=== PATIENT | male | born 1940 | race Caucasian/White ===

== ENCOUNTER 2024-08-01 17:30 | Inpatient (IN) | payer OTHER ==
[2024-08-01 18:07] VITALS: BMI 32.2
[2024-08-01 19:42] LABS: VENOUS BASE EXCESS 0.4 mmol/L (-2-2); VENOUS O2 SATURATION 50.6 % (70-80); VENOUS PCO2 45.7 mmHg (38-52); VENOUS PH 7.373 (7.310-7.410)
[2024-08-01 19:43] LABS: ABSOLUTE IMMATURE GRANULOCYTES 0.22 x10^3/uL (0.0-0.031); BASOPHILS # 0.09 x10^3/uL (0.01-0.08); EOSINOPHIL % 11.2 % (0.8-7.0); EOSINOPHILS # 1.73 x10^3/uL (0.04-0.54); HEMATOCRIT 36.6 % (40.1-51.0); HEMOGLOBIN 11.9 g/dL (13.7-17.5); MCHC 32.5 g/dl (32.3-36.5); MEAN CELL VOLUME 105.8 fl (79.0-92.2); MEAN PLT VOLUME 9.6 fl (9.4-12.4); MONOCYTE # 1.23 x10^3/uL (0.30-0.82); MONOCYTE % 7.9 % (5.3-12.2); PLATELET COUNT 263 x10^3/uL (163-337); RDW 14.5 % (12.6-16.6)
[2024-08-01 19:54] LABS: INR 1.05 (0.83-1.09); PROTHROMBIN TIME (PATIENT) 11.4 SEC (9.7-13.0)
[2024-08-01 19:57] LABS: ACTIVATED PTT 24.9 SECONDS (25.2-36.5)
[2024-08-01 20:02] LABS: CHLORIDE 107 mmol/L (98-107); POTASSIUM 4.4 mmol/L (3.5-5.1); SODIUM 141 mmol/L (136-145)
[2024-08-01 20:04] LABS: CALCIUM 8.7 mg/dL (8.5-10.1)
[2024-08-01 20:05] LABS: ALBUMIN 2.8 g/dl (3.4-5.0); ANION GAP 6 mmol/L (4-13); BLOOD UREA NITROGEN 16.6 mg/dL (7-18); CO2 27 mmol/L (21-32); GLUCOSE,RANDOM 106 mg/dL (74-106); MAGNESIUM 1.7 mg/dL (1.8-2.4)
[2024-08-01 20:08] LABS: CREATININE 1.3 mg/dL (0.55-1.3); PHOSPHOROUS 3.1 mg/dL (2.5-4.9); SGOT/AST 15 U/L (15-37); SGPT/ALT < 6 U/L (13-61)
[2024-08-01 20:10] LABS: BILIRUBIN,TOTAL 0.3 mg/dL (0.2-1); TOT PROT 5.6 g/dl (6.4-8.2)
[2024-08-01 20:11] LABS: ALK PHOS 82 U/L (45-117)
[2024-08-01 20:24] LABS: LACTIC ACID 2.2 mmol/L (0.4-2.0)
[2024-08-01] MEDS ORDERED: MAGNESIUM SULFATE IN WATER 2 GM/50 ML IVPB IVPB ONE (21:38)
[2024-08-01] MEDS: SODIUM CHLORIDE 1,000 ML IV STA (21:44)
[2024-08-01] MEDS: MAGNESIUM SULF 50% (8.12 MEQ/2 ML-1 GM VIAL) IVPB ONE (21:45)
[2024-08-02] MEDS ORDERED: ACETAMINOPHEN 325 MG TABLET (FP) PO PRN (00:05)
[2024-08-02] MEDS: CIPROFLOXACIN 400 MG/D5W 400 MG/200 ML IVPB IVPB ONE (00:15)
[2024-08-02 02:23] LABS: POTASSIUM 4.5 mmol/L (3.5-5.1)
[2024-08-02 02:24] LABS: CALCIUM 8.5 mg/dL (8.5-10.1)
[2024-08-02 02:25] LABS: MAGNESIUM 2.5 mg/dL (1.8-2.4)
[2024-08-02 02:28] LABS: CREATININE 1.2 mg/dL (0.55-1.3)
[2024-08-02 04:03] LABS: LACTIC ACID 2.1 mmol/L (0.4-2.0)
[2024-08-02 05:26] VITALS: RESP 18
[2024-08-02] MEDS ORDERED: SIMETHICONE 80 MG TAB.CHEW (FP) PO PRN (08:15)
[2024-08-02 09:21] LABS: BASOPHILS # 0.09 x10^3/uL (0.01-0.08); EOSINOPHIL % 11.7 % (0.8-7.0); EOSINOPHILS # 1.52 x10^3/uL (0.04-0.54); HEMATOCRIT 36.7 % (40.1-51.0); HEMOGLOBIN 11.9 g/dL (13.7-17.5); MCHC 32.4 g/dl (32.3-36.5); MEAN CELL VOLUME 106.1 fl (79.0-92.2); MEAN PLT VOLUME 9.9 fl (9.4-12.4); MONOCYTE # 1.17 x10^3/uL (0.30-0.82); PLATELET COUNT 255 x10^3/uL (163-337); RDW 14.5 % (12.6-16.6)
[2024-08-02] MEDS: CHOLECALCIFEROL (VIT D3) 1,000 UNIT (25 MCG) TABLET PO SCH (10:07)
[2024-08-02] MEDS: CEFTRIAXONE 1 G/50 ML PREMIX 50 ML IVPB SCH (10:07)
[2024-08-02] MEDS: metoPROLOL SUCCINATE 25 MG TAB.SR.24H (FP) PO SCH (10:07)
[2024-08-02] MEDS: SODIUM CHLORIDE 1,000 ML IV SCH (10:07)
[2024-08-02] MEDS: ASPIRIN COATED 81 MG TABLET.EC PO SCH (10:07)
[2024-08-02] MEDS: CARBIDOPA/LEVODOPA 25/250 TABLET (FP) PO SCH (10:07)
[2024-08-02] MEDS: ARTIFICIAL TEARS OPHTHALMIC DROPS OU PRN (12:00)
[2024-08-02] MEDS: AMMONIUM LACTATE 12% LOTION 225 GM BOTTLE TP SCH (12:00)
[2024-08-02] MEDS: NYSTATIN POWDER 100,000 UNITS/GM - 15 GM TOPICAL POWDER TP SCH (12:01)
[2024-08-02] MEDS: NYSTATIN 100,000 UNIT/GM TOPICAL CREAM 15 GM TUBE TP SCH (12:01)
[2024-08-02] MEDS: HEPARIN NA (PORCINE) 5,000 UNITS/ML 1ML VIAL SQ SCH (13:41)
[2024-08-02] MEDS: ALBUTEROL SO4 2.5/IPRATROPIUM 0.5 INH SOL 3 ML VIAL.NEB. NEB SCH (14:55)
[2024-08-02 18:08] LABS: EPI CELLS 5 /uL (0-25.1); HYALINE CASTS 0 /uL (0-3.1); PH,URINE 6.5 (5.0-8.0); URINE APPEARANCE CLEAR; URINE BACTERIA 7 /uL (0-1359); URINE BILIRUBIN NEGATIVE (NEGATIVE); URINE COLOR YELLOW; URINE GLUCOSE (UA) NEGATIVE (NEGATIVE); URINE KETONE TRACE (NEGATIVE); URINE LEUK ESTERASE NEGATIVE (NEGATIVE); URINE NITRITE NEGATIVE (NEGATIVE); URINE PROTEIN 1+ (NEGATIVE); URINE RBC 11 /uL (0-23.9); URINE WBC 13 /uL (0-25.8)
[2024-08-02] MEDS: POLYETHYLENE GLYCOL (HEALTHYLAX) 3350 17 GM PACKET PO SCH (21:53)
[2024-08-02] MEDS: TAMSULOSIN HCL 0.4 MG CAP PO SCH (21:54)
[2024-08-03] MEDS ORDERED: ACETAMINOPHEN 325 MG TABLET (FP) PO PRN (08:25)
[2024-08-03 09:19] LABS: HEMATOCRIT 37.6 % (40.1-51.0); MCHC 31.9 g/dl (32.3-36.5); MEAN CELL VOLUME 107.7 fl (79.0-92.2); MEAN PLT VOLUME 9.8 fl (9.4-12.4); PLATELET COUNT 265 x10^3/uL (163-337); RDW 14.3 % (12.6-16.6)
[2024-08-03 10:08] LABS: POTASSIUM 4.3 mmol/L (3.5-5.1)
[2024-08-03] MEDS: CYANOCOBALAMIN 1,000 MCG TABLET (FP) PO SCH (10:10)
[2024-08-03] MEDS: FERROUS SO4 325 MG TABLET (FP) PO SCH (10:10)
[2024-08-03] MEDS: PANTOPRAZOLE 40 MG TABLET PO SCH (10:11)
[2024-08-03 10:35] LABS: ALBUMIN 2.9 g/dl (3.4-5.0); CALCIUM 8.7 mg/dL (8.5-10.1); MAGNESIUM 2.4 mg/dL (1.8-2.4)
[2024-08-03 10:38] LABS: BLOOD UREA NITROGEN 15.3 mg/dL (7-18); CREATININE 1.3 mg/dL (0.55-1.3)
[2024-08-03 10:39] LABS: BILIRUBIN,TOTAL 0.5 mg/dL (0.2-1); TOT PROT 5.8 g/dl (6.4-8.2)
[2024-08-03] MEDS ORDERED: ALBUTEROL SO4 2.5/IPRATROPIUM 0.5 INH SOL 3 ML VIAL.NEB. NEB PRN (17:59)
[2024-08-03] MEDS: ALBUTEROL SO4 2.5/IPRATROPIUM 0.5 INH SOL 3 ML VIAL.NEB. NEB ONE (18:00)
[2024-08-04 10:38] LABS: ABSOLUTE IMMATURE GRANULOCYTES 0.24 x10^3/uL (0.0-0.031); BASOPHILS # 0.07 x10^3/uL (0.01-0.08); EOSINOPHIL % 13.7 % (0.8-7.0); HEMATOCRIT 33.9 % (40.1-51.0); HEMOGLOBIN 11.1 g/dL (13.7-17.5); MCHC 32.7 g/dl (32.3-36.5); MEAN CELL VOLUME 106.9 fl (79.0-92.2); MEAN PLT VOLUME 9.6 fl (9.4-12.4); MONOCYTE # 0.67 x10^3/uL (0.30-0.82); MONOCYTE % 6.6 % (5.3-12.2); PLATELET COUNT 246 x10^3/uL (163-337); RDW 14.5 % (12.6-16.6)
[2024-08-04 11:14] LABS: BLOOD UREA NITROGEN 15.5 mg/dL (7-18); CALCIUM 8.6 mg/dL (8.5-10.1); CREATININE 1.4 mg/dL (0.55-1.3); POTASSIUM 4.2 mmol/L (3.5-5.1)
[2024-08-05 09:33] LABS: ABSOLUTE IMMATURE GRANULOCYTES 0.24 x10^3/uL (0.0-0.031); EOSINOPHIL % 14.7 % (0.8-7.0); HEMATOCRIT 37.2 % (40.1-51.0); HEMOGLOBIN 11.9 g/dL (13.7-17.5); MEAN CELL VOLUME 106.9 fl (79.0-92.2); MEAN PLT VOLUME 9.7 fl (9.4-12.4); MONOCYTE # 0.75 x10^3/uL (0.30-0.82); MONOCYTE % 7.4 % (5.3-12.2); PLATELET COUNT 284 x10^3/uL (163-337); RDW 14.5 % (12.6-16.6)
[2024-08-05 10:01] LABS: POTASSIUM 4.3 mmol/L (3.5-5.1)
[2024-08-05 10:03] LABS: BLOOD UREA NITROGEN 14.4 mg/dL (7-18)
[2024-08-05 10:06] LABS: CREATININE 1.4 mg/dL (0.55-1.3)
[2024-08-05 10:27] VITALS: BP 139/56; PULSE 77; TEMP 97.9
== END 2024-08-05 15:07 | DRG 392 ==
LOC: JER 17:30 → JERBED 22:50 → J5S 08-02 04:56
PROVIDERS: ADMIT Internal Medicine; ATTEND Internal Medicine
DX: A09 Infectious gastroenteritis and colitis, unspecified (principal); E87.20 Acidosis, unspecified; G20.A1 Parkinson's disease without dyskinesia, without mention of fluctuations; N40.0 Benign prostatic hyperplasia without lower urinary tract symptoms; E78.00 Pure hypercholesterolemia, unspecified; D64.9 Anemia, unspecified; M10.9 Gout, unspecified; E53.8 Deficiency of other specified B group vitamins; L89.106 Pressure-induced deep tissue damage of unspecified part of back; L89.306 Pressure-induced deep tissue damage of unspecified buttock; K57.30 Diverticulosis of large intestine without perforation or abscess without bleeding
CPT/HCPCS: 0241U-QW; 36415; 70450-TC; 71045-TC-FY; 74177-TC; 74230-TC-FY; 80048; 80053; 81003; 82272; 82607; 82728; 82746; 82803; 82962; 83540; 83550; 83605; 83690; 83735; 84100; 84484; 85025; 85027; 85610; 85730; 86140; 86850; 86900; 86901; 87086; 87635; 92611-GN; 94640; 97116-GP; 97161-GP; 99285-25; E0186; J1644; Q9967